=== PATIENT | male | born 2000 | race Caucasian/White ===

== ENCOUNTER 2022-04-06 09:20 | Observation (INO) ==
[2022-04-06] MEDS ORDERED: cefTRIAXone SODIUM 2,000 MG/70 ML BAG IV STA (09:57)
[2022-04-06] MEDS ORDERED: SODIUM CHLORIDE 0.9% 1000ML 1,000 ML IV ONE (09:57)
[2022-04-06] MEDS ORDERED: dexAMETHasone**PF** 10 MG/ML VIAL IV ONE (09:57)
--- NOTE | 2022-04-06 10:07 | Emergency Department Note ---
History of Present Illness General Chief complaint: Throat Pain Stated complaint: THROAT PAIN Time Seen by Provider: 04/06/22 09:47 Source: patient Mode of arrival: ambulatory Limitations: no limitations History of Present Illness Maximum Pain Intensity: 7 This patient is a 21-year-old male who returns to the ER after having worsening of the sore throat he was seen 2 days ago had extensive work-up including a CT s oft tissues neck which was read as unremarkable. He was placed on antibiotics and steroids which she took although he did not take them this morning because he could not swallow he is gotten worse today he has had no shortness of breath he just severe pain and difficulty swallowing. He has a hard time talking secondary to the pain. Denies any trauma or injury. no chest pain or shortness of breath. Home Medications Medication Instructions Recorded Confirmed Type acetaminophen 500 mg tablet 1,000 mg PO DIRECTED PRN 04/04/22 04/04/22 History (Tylenol Extra Strength) PAIN/FEVER amoxicillin 875 mg-potassium 1 tab PO BID #20 tabs 04/04/22 Rx clavulanate 125 mg tablet ibuprofen 200 mg tablet 400 - 600 mg PO DIRECTED PRN 04/04/22 04/04/22 History PAIN/FEVER prednisone 50 mg tablet 50 mg PO DAILY 5 days #5 tabs 04/04/22 Rx prednisone 50 mg tablet 50 mg PO DAILY 5 days #5 tabs 04/04/22 Rx Allergies Allergy/AdvReac Type Severity Reaction Status Date / Time No Known Allergies AdvReac Unknown Verified 04/04/22 19:54 Past Med/Surg History Medical History No significant past medical history Surgical History No significant past surgical history Social History Smoking Status: Never smoker Tobacco Type: E-cigarettes / Vaping Preferred Language: Yoruba marital status: Single Current Living Situation: Family current occupational status: unemployed Feels Safe at Home: Yes Review of Systems A total of 10 systems reviewed and were otherwise negative Physical Exam Vital Signs Vital Signs - 24 hr 04/06/22 09:32 04/06/22 10:41 04/06/22 11:34 Temperature 37 C Temperature Source Temporal Artery Scan Pulse Rate 97 H Pulse Rate [Finger] 83 Respiratory Rate 16 20 Respiratory Depth Normal Blood Pressure 137/83 Blood Pressure [Left Arm] 133/72 Blood Pressure Mean 101 Blood Pressure Mean [Left Arm] 92 Blood Pressure Position Sitting Pulse Oximetry 97 96 Oxygen Delivery Method Room Air Room Air Room Air Sepsis Recent Fever Within 48 Hours No Sepsis New/Unexplained Change in Mental Status No Sepsis Action Taken by Nursing No Action Required 04/06/22 13:09 04/06/22 14:45 Temperature Temperature Source Pulse Rate Pulse Rate [Finger] 92 H 90 Respiratory Rate 18 14 Respiratory Depth Blood Pressure Blood Pressure [Left Arm] 146/78 H 133/84 Blood Pressure Mean Blood Pressure Mean [Left Arm] 100 100 Blood Pressure Position Pulse Oximetry 97 99 Oxygen Delivery Method Room Air Room Air Sepsis Recent Fever Within 48 Hours Sepsis New/Unexplained Change in Mental Status Sepsis Action Taken by Nursing General: Well developed well nourished young male who is having difficulty time talking secondary to pain but appear in no acute distress, breathing comfortably on room air. HEENT: Normal cephalic atraumatic. Pupils are equal round and reactive to light. Extraocular movements are intact. Oropharynx is pink with moist mucous membranes. No swelling of the mouth lips or tongue. He does have trismus. He has swelling in his posterior oropharynx primarily on the left concerning for peritonsillar abscess. The airway appears patent and the floor the mouth is soft without Ludewig's angina Neck: Supple with a midline trachea. No meningeal signs or stiffness, no JVD or bruits. No Stridor. Chest: Clear to auscultation bilaterally. No wheezes or rhonchi. No increased work of breathing. Heart: Regular rate and rhythm without murmurs or gallops. Abdomen: Soft nontender, nondistended without rebound guarding or rigidity. Extremities: No cyanosis clubbing or edema. No calf tenderness or assymetry Spine/Back. Non tender to palpation. No CVA tenderness Skin: Good turgor without rashes. Neurologic exam: Cranial nerves two through 12 are intact. Motor and sensation are intact and symmetrical throughout. Course Administered Medications Discontinued Medications Benzocaine/Butamben/Tetracaine HCl (Benzocaine/Tetracain/Butam 50 Appln/5 Gm Can) Confirm Administered Dose 50 appln EXT .STK-MED ONE Stop: 04/06/22 13:27 Last Admin: 04/06/22 14:28 Dose: 50 appln Documented By: JOVANNY Dexamethasone Sodium Phosphate (DexamethasonePf 10 Mg/Ml Vial) 10 mg IV NOW ONE Stop: 04/06/22 09:58 Last Admin: 04/06/22 10:31 Dose: 10 mg Documented By: TONIA Sodium Chloride (Nss 1000ml) 1,000 mls @ 999 mls/hr IV .Q1H1M ONE Stop: 04/06/22 10:57 Last Infusion: 04/06/22 11:45 Dose: 0 mls/hr Documented By: Admin: 04/06/22 10:31 Dose: 999 mls/hr Documented By: TONIA Ceftriaxone Sodium (Rocephin) 2,000 mg in 70 mls @ 140 mls/hr IV NOW STA Stop: 04/06/22 10:26 Last Infusion: 04/06/22 11:01 Dose: 0 mls/hr Documented By: Admin: 04/06/22 10:31 Dose: 140 mls/hr Documented By: TONIA Ioversol (Optiray 350 100ml) 87 ml IV ONCE ONE Stop: 04/06/22 12:20 Last Admin: 04/06/22 12:19 Dose: 87 ml Documented By: MARIE Ketorolac Tromethamine (Ketorolac Tromethamine 15 Mg/Ml Vial) 10 mg IV NOW ONE Stop: 04/06/22 10:47 Last Admin: 04/06/22 10:56 Dose: 10 mg Documented By: TONIA Lidocaine/Epinephrine (Lidocaine 1%/Epinephrine 1:100,000 50 Ml Vial) 1 ml INFIL NOW ONE Stop: 04/06/22 13:14 Last Admin: 04/06/22 14:27 Dose: 1 ml Documented By: JOVANNY Medical Decision Making Differential Diagnosis Peritonsillar abscess, pharyngitis, sepsis, dehydration, Eldon's angina Medical Records Attestation: I reviewed the patient's medical records. Home Medications Current Medication List: was personally reviewed by me Laboratory Data Attestation: I reviewed the patient's lab results. Result diagrams: 04/06/22 10:22 04/06/22 10:22 Lab Results 04/06/22 04/06/22 04/06/22 Range/Units 10: 10:22 11:30 WBC 16.13 H (4.8-10.8) K/ul RBC 5.18 (4.63-6.08) M/uL Hgb 14.8 (14.0-18.0) g/dl Hct 43.4 (40.1-51.0) % MCV 83.8 (80.0-100.0) fL MCH 28.6 (25.0-34.0) pg MCHC 34.1 (32.0-36.0) g/dL RDW Std Deviation 35.8 L (36.4-46.3) fL RDW Coeff of Brandi 11.8 (11.5-14.5) % Plt Count 412 H (130-400) K/uL MPV 9.1 L (9.4-12.4) fL Immature Gran % (Auto) 1.4 % Neut % (Auto) 74.2 % Lymph % (Auto) 14.9 % [place] % (Auto) 8.8 % Eos % (Auto) 0.4 % Baso % (Auto) 0.3 % Neut # (Auto) 11.98 H (1.4-6.5) K/uL Lymph # (Auto) 2.40 (1.2-3.4) K/uL [place] # (Auto) 1.42 H (0.24-0.82) K/uL Eos # (Auto) 0.06 (0-0.50) K/uL Baso # (Auto) 0.05 (0-0.2) K/uL Immature Gran # (Auto) 0.22 H (0.00-0.02) K/uL Sodium 140 (136-145) mmol/L Potassium 3.8 (3.5-5.1) mmol/L Chloride 104 (98-107) mmol/L Carbon Dioxide 27 (21-32) mmol/L Anion Gap 9 (3-11) BUN 12 (6-23) mg/dl Creatinine 0.75 (0.6-1.4) mg/dl Est Cr Clr Drug Dosing Not Reportable Est GFR ( Amer) > 150.0 ml/min Est GFR (Non-Af Amer) 130.2 ml/min BUN/Creatinine Ratio 16.0 (10-20) Glucose 87 (70-99(Fasting)) mg/dl Calcium 9.6 (8.5-10.1) mg/dl Total Bilirubin 0.3 (0.2-1.0) mg/dl AST 27 (13-39) U/L ALT 37 (7-52) U/L Alkaline Phosphatase 60 (34-104) U/L Total Protein 8.2 (6.0-8.3) gm/dl Albumin 4.3 (3.4-5.0) gm/dl Globulin 3.9 (2.5-4.0) gm/dl Albumin/Globulin Ratio 1.1 (0.9-2) Lipase 22 (11-82) U/L SARS-CoV-2, RNA, NAAT NEGATIVE (NEGATIVE) Imaging Data Radiologist's Impression: Soft Tissue Neck CT 04/06/22 10:01 CT OF THE NECK WITH IV CONTRAST CLINICAL HISTORY: Sore throat. Evaluate for abscess. COMPARISON STUDY: Neck CT April 04, 2022. TECHNIQUE: Following IV administration of 87 mL of Optiray, helical axial images of the neck were obtained. Sagittal and coronal reconstructions were viewed. Automated exposure control was utilized for the study. A dose lowering technique was utilized adhering to the principles of ALARA. CT DOSE: 623.21 mGy.cm FINDINGS: Visualized portions of the intracranial contents are unremarkable. Sinuses and mastoid air cells are clear. Major vasculature of the neck is bansal nt. Tonsillar enlargement and enhancement represents tonsillitis, greater on the left. There is moderate mass effect with narrowing of the hypopharynx. There has been interval development of a rim-enhancing 3 x 1.7 x 1.2 cm left peritonsillar fluid collection consistent with an abscess. There is moderate adjacent edema. This abscess is elongated. The epiglottis is normal. There is no soft tissue g as. Visualized lung apices are clear. Parotid and submandibular glands are normal. Asymmetrically enlarged left cervical lymph nodes are reactive. Index left level 2 node on image 176 of 409 measures 2 x 1.8 cm. There are secretions within the nasopharynx. The adenoids are enlarged. The uvula is thickened. IMPRESSION: 1. Interval development of a 3 x 1.7 x 1.2 cm left peritonsillar abscess. Adjacent parapharyngeal edema. 2. Acute tonsillitis, greater on the left. Mass effect with narrowing of the hypopharynx. 3. Reactive left cervical lymphadenopathy. ACT 112: Negative or not required by law. Electronically signed by: José Membreno M.D. 04/06/2022 12:42 PM ECG Data Attestation: I personally reviewed and interpreted this ECG as follows: Indication: + abdominal pain and + chest pain Rate (beats per minute): 70 Rhythm: + normal sinus ECG Intervals/blocks: + Normal QRS, + Normal QT and + Normal [place] ECG [place]: + Normal ECG ST segments: + Normal ST segments ECG Findings: no PACs or no PVCs Comparison ECG Date: no prior available MDM Narrative This patient comes in as described above. He has worsening sore throatand I am suspicious for peritonsillar abscess. IV access was established he was hydrated 1 L normal saline bolus he was given Rocephin 2 g IV and Decadron 10 mg IV he reports no allergies blood work was obtained I did talk to Dr. Membreno, radiologist, who looked at the old scan he said there was no definite abscess on the previous he recommends rescanning he said there was a little bit of a phlegmon which could have organized now. His white count was elevated. No sick electrolyte or metabolic abnormalities. He did have an episode where he started having abdominal pain and chest pain. He had no evidence to suggest allergic reaction he had no hives or increasing swelling he was given Toradol I checked an EKG was unremarkable. He felt much better he seems somewhat anxious at the time 2 as well. I did consult Dr. Reyes. Dr. Reyes did come in and attempted to drain the abscess. As it turns out there was no abscess cavity or pus it but it ended up being more of a phlegmon. He does recommend we admit the patient for IV antibiotics and fluids steroids. I have consulted with Dr. Nieto and she and the [facility] team will be admitting the patient Impression & Plan Abscess, peritonsillar, Acute infective tonsillitis, Acute sore throat, Lab test negative for COVID-19 virus Discharge Plan Visit Data Chief Complaint: Throat Pain Stated Complaint: THROAT PAIN ED Provider: Terry Resendez Discharge Problem: Abscess, peritonsillar, Acute infective tonsillitis, Acute sore throat, Lab test negative for COVID-19 virus Forms Stand Alone Forms: My [facility] Prescriptions Prescriptions: No Action acetaminophen [Tylenol Extra Strength] 500 mg Tablet 1,000 mg PO DIRECTED PRN (Reason: PAIN/FEVER) ibuprofen 200 mg Tablet 400 - 600 mg PO DIRECTED PRN (Reason: PAIN/FEVER) amoxicillin-pot clavulanate 875-125 mg tablet 1 tab PO BID Qty: 20 0RF prednisone 50 mg tablet 50 mg PO DAILY 5 Days Qty: 5 0RF prednisone 50 mg tablet 50 mg PO DAILY 5 Days Qty: 5 0RF Referrals Referrals: PCP,NO [Primary Care Provider] - : Acute infective tonsillitis Qualifiers: Pharyngitis/tonsillitis etiology: unspecified etiology Qualified Code(s): J03.90 - Acute tonsillitis, unspecified
[2022-04-06 10:32] LABS: Basophils # (auto) 0.05 K/uL (0-0.2); Basophils % (auto) 0.3 %; Eosinophils # (auto) 0.06 K/uL (0-0.50); Eosinophils % (auto) 0.4 %; Hematocrit (blood only) 43.4 % (40.1-51.0); Hemoglobin 14.8 g/dl (14.0-18.0); Immature Granulocytes # (auto) 0.22 K/uL (0.00-0.02); Immature Granulocytes % (auto) 1.4 %; Lymphocytes % (auto) 14.9 %; Mean Corpuscular Hemoglobin 28.6 pg (25.0-34.0); Mean Corpuscular Hgb Conc 34.1 g/dL (32.0-36.0); Mean Corpuscular Volume 83.8 fL (80.0-100.0); Mean Platelet Volume 9.1 fL (9.4-12.4); Monocytes # (auto) 1.42 K/uL (0.24-0.82); Monocytes % (auto) 8.8 %; Neutrophils # (auto) 11.98 K/uL (1.4-6.5); Neutrophils % (auto) 74.2 %; Platelet Count 412 K/uL (130-400); RDW Coefficient of Variation 11.8 % (11.5-14.5); RDW Standard Deviation 35.8 fL (36.4-46.3); Red Blood Count 5.18 M/uL (4.63-6.08); White Blood Count 16.13 K/ul (4.8-10.8)
[2022-04-06] MEDS ORDERED: KETOROLAC TROMETHAMINE 15 MG/ML VIAL IV ONE (10:46)
[2022-04-06 10:52] LABS: Alanine Aminotransferase 37 U/L (7-52); Albumin Globulin Ratio 1.1 (0.9-2); Albumin Level 4.3 gm/dl (3.4-5.0); Alkaline Phosphatase 60 U/L (34-104); Anion Gap 9 (3-11); Aspartate Aminotransferase 27 U/L (13-39); Bilirubin,Total 0.3 mg/dl (0.2-1.0); Blood Urea Nitrogen 12 mg/dl (6-23); Calcium 9.6 mg/dl (8.5-10.1); Carbon Dioxide 27 mmol/L (21-32); Chloride 104 mmol/L (98-107); Est GFR (African American) > 150.0 ml/min; Est GFR (Non-African American) 130.2 ml/min; Globulin 3.9 gm/dl (2.5-4.0); Glucose 87 mg/dl (70-99(Fasting)); Lipase 22 U/L (11-82); Potassium 3.8 mmol/L (3.5-5.1); Sodium 140 mmol/L (136-145); Total Protein 8.2 gm/dl (6.0-8.3)
[2022-04-06] MEDS ORDERED: OPTIRAY 350 100ml IV ONE (12:19)
--- NOTE | 2022-04-06 12:45 | CT Scan Report ---
CT OF THE NECK WITH IV CONTRAST CLINICAL HISTORY: Sore throat. Evaluate for abscess. COMPARISON STUDY: Neck CT April 04, 2022. TECHNIQUE: Following IV administration of 87 mL of Optiray, helical axial images of the neck were ob tained. Sagittal and coronal reconstructions were viewed. Automated exposure control was utilized f or the study. A dose lowering technique was utilized adhering to the principles of ALARA. CT DOSE: 623.21 mGy.cm FINDINGS: Visualized portions of the intracranial contents are unremarkable. Sinuses and mastoid air cells are clear. Major vasculature of the neck is patent. Tonsillar enlargement and enhancement repr esents tonsillitis, greater on the left. There is moderate mass effect with narrowing of the hypophar ynx. There has been interval development of a rim-enhancing 3 x 1.7 x 1.2 cm left peritonsillar fluid collection consistent with an abscess. There is moderate adjacent edema. This abscess is elongated. The epiglottis is normal. There is no soft tissue gas. Visualized lung apices are clear. Parotid and submandibular glands are normal. Asymmetrically enlarged left cervical lymph nodes are reactive. Inde x left level 2 node on image 176 of 409 measures 2 x 1.8 cm. There are secretions within the nasophar ynx. The adenoids are enlarged. The uvula is thickened. IMPRESSION: 1. Interval development of a 3 x 1.7 x 1.2 cm left peritonsillar abscess. Adjacent parapharyngeal win ma. 2. Acute tonsillitis, greater on the left. Mass effect with narrowing of the hypopharynx. 3. Reactive left cervical lymphadenopathy. ACT 112: Negative or not required by law. Electronically signed by: José Membreno M.D. 04/06/2022 12:42 PM
[2022-04-06] MEDS ORDERED: LIDOCAINE 1%/EPINEPHRINE 1:100,000 50 ML VIAL INFIL ONE (13:13)
[2022-04-06] MEDS ORDERED: BENZOCAINE/TETRACAIN/BUTAM 50 APPLN/5 GM CAN EXT STA (13:14)
[2022-04-06] MEDS ORDERED: BENZOCAINE/TETRACAIN/BUTAM 50 APPLN/5 GM CAN EXT ONE (13:26)
--- NOTE | 2022-04-06 14:55 | Electrocardiogram Report ---
Test Reason : Blood Pressure : / mmHG Vent. Rate : 070 BPM Atrial Rate : 070 BPM P-R Int : 128 ms QRS Dur : 100 ms QT Int : 402 ms P-R-T Axes : 061 025 029 degrees QTc Int : 434 ms Poor data quality, interpretation may be adversely affected Normal sinus rhythm Normal ECG No previous ECGs available Confirmed by Saw Hoff ([id number]) on 04/06/2022 2:55:06 PM Referred By: REFERRED SELF Confirmed By:Saw Hoff
--- NOTE | 2022-04-06 14:59 | ENT Consultation ---
Date of Consultation April 06, 2022 Assessment & Plan (1) Acute infective tonsillitis: Tonsillar hypertrophy left greater than the right with minimal shift, minimal trismus. However radiologist read 3 cm left peritonsillar abscess. The patient does not look toxic and with a slight asymmetry, I did anesthetize and aspirated multiple sites with no sign of pus. I did incised with 11 blade and spread with tonsillar hemostat again no sign of abscess. This is peritonsillar cellulitis. Require in-house IV antibiotics. 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 Resendez Allergies Allergy/AdvReac Type Severity Reaction Status Date / Time No Known Allergies AdvReac Unknown Verified 04/04/22 19:54 Home Medications Medication Instructions Recorded Confirmed Type acetaminophen 500 mg tablet 1,000 mg PO DIRECTED PRN 04/04/22 04/04/22 History (Tylenol Extra Strength) PAIN/FEVER amoxicillin 875 mg-potassium 1 tab PO BID #20 tabs 04/04/22 Rx clavulanate 125 mg tablet ibuprofen 200 mg tablet 400 - 600 mg PO DIRECTED PRN 04/04/22 04/04/22 History PAIN/FEVER prednisone 50 mg tablet 50 mg PO DAILY 5 days #5 tabs 04/04/22 Rx prednisone 50 mg tablet 50 mg PO DAILY 5 days #5 tabs 04/04/22 Rx Patient History Medical History No significant past medical history Surgical History No significant past surgical history Social History Smoking Status: Never smoker Tobacco Type: E-cigarettes / Vaping Preferred Language: Scottish marital status: Single Current Living Situation: Family current occupational status: unemployed Feels Safe at Home: Yes Physical Exam Constitutional: + ill appearing and + obese Eyes: PERRL, conjunctivae normal, anicteric sclerae ENMT: external ear and nose normal, oropharynx normal Mouth: + oropharynx abnormality (Tonsils 3+, slight asymmetry with left side larger than the right) and + trismus (Minimal trismus) Neck: trachea midline, no thyromegaly Respiratory: normal respiratory effort, lungs clear to auscultation Results & Data ([facility]) Vital Signs (Past 12 Hours) Vital Signs Temp Pulse Pulse Resp BP BP Pulse Ox 04/06/22 14:45 90 14 133/84 99 04/06/22 13:09 92 H 18 146/78 H 97 04/06/22 11:34 83 20 133/72 96 04/06/22 10:41 04/06/22 09:32 37 C 97 H 16 137/83 97 O2 Del Method 04/06/22 14:45 Room Air 04/06/22 13:09 Room Air 04/06/22 11:34 Room Air 04/06/22 10:41 Room Air 04/06/22 09:32 Room Air
--- NOTE | 2022-04-06 15:03 | Operative Report ---
PG Post Operative Report Pre & Post Diagnosis Preop diagnosis: Peritonsillar abscess left Postop diagnosis: Left-sided phlegmon with no sign of pus I identified the patient and participated in the time-out.: Yes Procedure Incision and drainage Surgeon Destinee Reyes MD [place] None Estimated Blood Loss 2 Findings Consistent with Post-Op Diagnosis No sign of pus or abscess Specimens None Anesthesia Type Local Complications None Indications This 21-year-old was seen here last week and again 2 days ago and again today with worsening sore throat, CT scan 2 days ago compared to today showed progression of left-sided phlegmon to a 3 cm abscess according to radiology Description of Procedure I anesthetized using topical Cetacaine spray. This was followed by injection of 1% Xylocaine with 1 20,000 strength epinephrine. I aspirated multiple sites superior middle and inferior pole of the left tonsil in the peritonsillar space with 18-gauge needle. No sign of pus found. I did incised with #11 blade just to make sure. I spread the peritonsillar space open with a tonsil hemostat, still no sign of pus. He tolerated procedure well. I attest to the content of the Intraoperative Record and any orders documented therein. Any exceptions are noted below.
--- NOTE | 2022-04-06 16:13 | History & Physical Report ---
Date of Service April 06, 2022 Assessment & Plan (1) Acute sore throat: (2) Acute infective tonsillitis: Plan: - presented in the ER on March 29 with sore throat - He was tested for RSV, COVID, influenza, strep A which were all negative - was discharged home and presented back to ED on April 04 as his symptoms were worsening. He was treated with Tylenol and steroid, CT neck was obtained at that time and was overall unremarkable. - 04/06 - Today presents back in the ED as his sore throat is worsening, he has notable swelling, and difficulty eating/swallowing - CT of the neck was obtained, and showed possible peritonsillar abscess - ENT, Dr. Reyes was consulted by ED, and performed incision and drainage, however there was no abscess/pus identified. After close examination by ENT, patient's symptoms seem to be secondary to phlegmon, tonsillitis/peritonsillar cellulitis. - Discussed with Dr. Reyes who recommends patient to be admitted to hospital for IV antibiotics and rehydration, pain control. - In the ED received dexamethasone, ceftriaxone, pain control - Start IV unasyn , IVF NSS, IV tylenol, pain control - cont. to closely monitor - ENT, Dr. Reyes following History of Present Illness Chief Complaint: sore throat Primary Care Provider: NO PCP Patient is a 21-year-old male, with no significant past medical history, who presents with sore throat and neck swelling. Patient denies being on any medications or have any chronic medical conditions, however he does not follow with PCP. He presented in the ER on March 29 with sore throat. At that time he reported that his mother also had a sore throat. He was tested for RSV, COVID, influenza, strep A which were all negative. He was discharged home and presented back to ED on April 04 as his symptoms were worsening. He was treated with Tylenol and steroid, CT neck was obtained at that time and was overall unremarkable. Today presents back in the ED as his sore throat is worsening, he has notable swelling, and difficulty eating/swallowing. CT of the neck was obtained, and showed possible peritonsillar abscess. ENT, Dr. Reyes was consulted by ED, and performed incision and drainage, however there was no abscess/pus identified. After close examination by ENT, patient's symptoms seem to be secondary to phlegmon, tonsillitis/peritonsillar cellulitis. Discussed with Dr. Reyes who recommends patient to be admitted to hospital for IV antibiotics and rehydration, pain control. Patient is currently sitting up in bed, in no acute distress. He has difficulty speaking. He is breathing comfortably on room air. He is not drooling and he is able to control his secretions. Reports having fevers previously, but not recently. Currently denies any shortness of breath or chest pain. Currently denies any abdominal pain, has no history of nausea vomiting diarrhea. Reports his mother is at home, with a sore throat as well, and plans to be evaluated after the holidays. He is not aware of any medication allergies. He does not smoke, however he reports vaping. Denies any alcohol use. Reports that his mother has a murmur, however denies any significant family medical history. Allergies Allergy/AdvReac Type Severity Reaction Status Date / Time No Known Allergies AdvReac Unknown Verified 04/06/22 16:34 Home Medications Medication Instructions Recorded Confirmed Type acetaminophen 500 mg tablet 1,000 mg PO DIRECTED PRN 04/04/22 04/06/22 History (Tylenol Extra Strength) PAIN/FEVER amoxicillin 875 mg-potassium 1 tab PO BID #20 tabs 04/04/22 04/06/22 Rx clavulanate 125 mg tablet ibuprofen 200 mg tablet 400 - 600 mg PO DIRECTED PRN 04/04/22 04/06/22 History PAIN/FEVER prednisone 50 mg tablet 50 mg PO DAILY 5 days #5 tabs 04/04/22 04/06/22 Rx lactobacillus combination no.4 3 0 mmu cells PO DAILY 04/06/22 04/06/22 History billion cell capsule (Probiotic) Past Med/Surg History Medical History No significant past medical history Surgical History No significant past surgical history Family History (Updated 04/06/22 @ 16:11 by Marcelino Nieto MD) Mother Heart murmur Social History Smoking Status: Never smoker Tobacco Type: E-cigarettes / Vaping Preferred Language: Wolof marital status: Single Current Living Situation: Family current occupational status: unemployed Feels Safe at Home: Yes Review of Systems Review of Systems: All systems reviewed & are unremarkable except as noted in Subjective Physical Exam Constitutional: WD/WN, vitals as above (obese M in NAD, breathing comfortably on RA, no drooling) Eyes: PERRL, conjunctivae normal, anicteric sclerae ENMT: Throat: + tonsil abnormality (enlarged, scant blood present (s/p ENT procedure)) Neck: + thick neck (swelling noted more on the left) Respiratory: normal respiratory effort, lungs clear to auscultation Cardiovascular: RRR, no murmur, no edema Chest (Breasts): Chest: normal inspection of chest Gastrointestinal (Abdomen): normal bowel sounds, soft, nontender, no hepatosplenomegaly Musculoskeletal: no cyanosis or clubbing, extremities motor strength 5/5 Skin: no rashes, warm and dry Neurologic: patellar DTR's 2+ bilat, sensation intact Psychiatric: A+Ox3, euthymic affect Results & Data Results & Data ([facility]) Vital Signs (Past 12 Hours) Vital Signs Temp Pulse Pulse Resp BP BP Pulse Ox 04/06/22 14:45 90 14 133/84 99 04/06/22 13:09 92 H 18 146/78 H 97 04/06/22 11:34 83 20 133/72 96 04/06/22 10:41 04/06/22 09:32 37 C 97 H 16 137/83 97 O2 Del Method 04/06/22 14:45 Room Air 04/06/22 13:09 Room Air 04/06/22 11:34 Room Air 04/06/22 10:41 Room Air 04/06/22 09:32 Room Air Laboratory Results 04/06/22 04/06/22 04/06/22 Range/Units 11:30 10:22 10:22 WBC 16.13 H (4.8-10.8) K/ul RBC 5.18 (4.63-6.08) M/uL Hgb 14.8 (14.0-18.0) g/dl Hct 43.4 (40.1-51.0) % MCV 83.8 (80.0-100.0) fL MCH 28.6 (25.0-34.0) pg MCHC 34.1 (32.0-36.0) g/dL RDW Std Deviation 35.8 L (36.4-46.3) fL RDW Coeff of Brandi 11.8 (11.5-14.5) % Plt Count 412 H (130-400) K/uL MPV 9.1 L (9.4-12.4) fL Immature Gran % (Auto) 1.4 % Neut % (Auto) 74.2 % Lymph % (Auto) 14.9 % Lipscomb % (Auto) 8.8 % Eos % (Auto) 0.4 % Baso % (Auto) 0.3 % Neut # (Auto) 11.98 H (1.4-6.5) K/uL Lymph # (Auto) 2.40 (1.2-3.4) K/uL Lipscomb # (Auto) 1.42 H (0.24-0.82) K/uL Eos # (Auto) 0.06 (0-0.50) K/uL Baso # (Auto) 0.05 (0-0.2) K/uL Immature Gran # (Auto) 0.22 H (0.00-0.02) K/uL Sodium 140 (136-145) mmol/L Potassium 3.8 (3.5-5.1) mmol/L Chloride 104 (98-107) mmol/L Carbon Dioxide 27 (21-32) mmol/L Anion Gap 9 (3-11) BUN 12 (6-23) mg/dl Creatinine 0.75 (0.6-1.4) mg/dl Est Cr Clr Drug Dosing Not Reportable Est GFR ( Amer) > 150.0 ml/min Est GFR (Non-Af Amer) 130.2 ml/min BUN/Creatinine Ratio 16.0 (10-20) Glucose 87 (70-99(Fasting)) mg/dl Calcium 9.6 (8.5-10.1) mg/dl Total Bilirubin 0.3 (0.2-1.0) mg/dl AST 27 (13-39) U/L ALT 37 (7-52) U/L Alkaline Phosphatase 60 (34-104) U/L Total Protein 8.2 (6.0-8.3) gm/dl Albumin 4.3 (3.4-5.0) gm/dl Globulin 3.9 (2.5-4.0) gm/dl Albumin/Globulin Ratio 1.1 (0.9-2) Lipase 22 (11-82) U/L SARS-CoV-2, RNA, NAAT NEGATIVE (NEGATIVE) Diagnostic Findings CT neck IMPRESSION: 1. Interval development of a 3 x 1.7 x 1.2 cm left peritonsillar abscess. Adjacent parapharyngeal edema. 2. Acute tonsillitis, greater on the left. Mass effect with narrowing of the hypopharynx. 3. Reactive left cervical lymphadenopathy. Code Status & VTE Plan VTE Prophylaxis Plan VTE Prophylaxis will be ordered: Yes (1) Acute infective tonsillitis Pharyngitis/tonsillitis etiology: unspecified etiology Qualified Code(s): J 03.90 - Acute tonsillitis, unspecified
[2022-04-06] MEDS: ACETAMINOPHEN 1,000 MG/100 ML VIAL IV SCH (16:41)
[2022-04-06] MEDS: SODIUM CHLORIDE 0.9% 1000ML 1,000 ML IV SCH (16:41)
[2022-04-06] MEDS: AMPICILLIN/SULBACTAM SOD 3,000 MG in 0.9 % SODIUM CHLORIDE 100 ML IV SCH ×2 (17:15→23:13)
[2022-04-07] MEDS: ACETAMINOPHEN 1,000 MG/100 ML VIAL IV SCH ×3 (00:19→16:05)
[2022-04-07] MEDS: AMPICILLIN/SULBACTAM SOD 3,000 MG in 0.9 % SODIUM CHLORIDE 100 ML IV SCH ×4 (04:32→22:41)
[2022-04-07 06:29] LABS: Hemoglobin 13.6 g/dl (14.0-18.0); Mean Corpuscular Hgb Conc 34.9 g/dL (32.0-36.0); Mean Corpuscular Volume 83.2 fL (80.0-100.0); Mean Platelet Volume 9.1 fL (9.4-12.4); Platelet Count 384 K/uL (130-400); RDW Coefficient of Variation 11.9 % (11.5-14.5); RDW Standard Deviation 35.7 fL (36.4-46.3); Red Blood Count 4.69 M/uL (4.63-6.08); White Blood Count 15.69 K/ul (4.8-10.8)
[2022-04-07] MEDS: SODIUM CHLORIDE 0.9% 1000ML 1,000 ML IV SCH (06:35)
[2022-04-07 07:00] LABS: Anion Gap 6 (3-11); BUN Creatinine Ratio 17.7 (10-20); Blood Urea Nitrogen 11 mg/dl (6-23); Carbon Dioxide 29 mmol/L (21-32); Chloride 103 mmol/L (98-107); Creatinine Clr Calc Pharmacy 212.4 ml/min; Est GFR (African American) > 150.0 ml/min; Est GFR (Non-African American) 140.8 ml/min; Glucose 90 mg/dl (70-99(Fasting)); Magnesium 2.3 mg/dl (1.7-2.4); Phosphorus 4.3 mg/dl (2.5-4.9); Sodium 138 mmol/L (136-145)
--- NOTE | 2022-04-07 07:41 | Hospitalist Progress Note ---
Date of Service April 07, 2022 Assessment & Plan (1) Acute sore throat: (2) Acute infective tonsillitis: Plan: - presented in the ER on March 29 with sore throat - He was tested for RSV, COVID, influenza, strep A which were all negative - was discharged home and presented back to ED on April 04 as his symptoms were worsening. He was treated with Tylenol and steroid, CT neck was obtained at that time and was overall unremarkable. - 04/06 - Today presents back in the ED as his sore throat is worsening, he has notable swelling, and difficulty eating/swallowing - CT of the neck was obtained, and showed possible peritonsillar abscess - ENT, Dr. Reyes was consulted by ED, and performed incision and drainage, however there was no abscess/pus identified. After close examination by ENT, patient's symptoms seem to be secondary to phlegmon, tonsillitis/peritonsillar cellulitis. - Discussed with Dr. Reyes who recommends patient to be admitted to hospital for IV antibiotics and rehydration, pain control. - In the ED received dexamethasone, ceftriaxone, pain control - Started IV unasyn , IVF NSS, IV tylenol, pain control - will continue - cont. to closely monitor - ENT, Dr. Reyes following - per ENT eval. pt improved on 04/07 Patient does feel better, pain better controlled and he is able to speak better. We will advance diet to clear liquid as well Admission and Anticipated Discharge Date Admission Date: April 06, 2022 Subjective Patient seen in follow-up of sore throat, tonsillitis seen by ENT Patient feeling better this morning Will advance diet to clear liquid Seen by ENT this a.m. Continue IV antibiotic No fevers chills chest pain shortness of breath, no nausea vomiting abdominal pain Review of Systems Review of Systems: All systems reviewed & are unremarkable except as noted in Subjective Physical Exam Physical Exam: Constitutional:J WD/WN, vitals as a maría (obese M in N AD, breathing comf ortably on RA, no drooling) Eyes: PERRL, EOMI, conju nctivae normal, an icteric sclerae ENMT: Throat: + tonsil a bnormality (enlarg ed, scant blood pr esent (s/p ENT pro cedure)) Neck: + thick neck (swe lling noted more o n the left but imp roved from yesterd ay) Respiratory: normal respiratory effort, lungs alesha ar to auscultation Cardiovascular:J RRR, no murmur, no edema Chest (Breasts): Chest: normal insp ection of chest Gastrointestinal ( Abdomen): normal bowel sound s, soft, nontender Musculoskeletal: extremities motor strength 5/5 Skin: no rashes, warm an d dry Neurologic: moves extremities, speech improved Psychiatric: A+Ox3, euthymic af fect Results & Data Results & Data ([facility]) Vital Signs (Past 12 Hours) Vital Signs Temp Pulse Pulse Resp BP BP Pulse Ox 04/07/22 07:23 53 L 04/07/22 03:55 36.5 C 54 L 120/75 96 04/06/22 22:01 61 04/06/22 19:50 75 04/07/22 00:06 36.5 C 62 16 133/73 95 04/06/22 19:45 37.0 C 72 16 122/72 97 O2 Del Method 04/07/22 07:23 04/07/22 03:55 Room Air 04/06/22 22:01 04/06/22 19:50 04/07/22 00:06 Room Air 04/06/22 19:45 Room Air Laboratory Results 04/07/22 04/07/22 04/06/22 Range/Units 05:51 05:51 11:30 WBC 15.69 H (4.8-10.8) K/ul RBC 4.69 (4.63-6.08) M/uL Hgb 13.6 L (14.0-18.0) g/dl Hct 39.0 L (40.1-51.0) % MCV 83.2 (80.0-100.0) fL MCH 29.0 (25.0-34.0) pg MCHC 34.9 (32.0-36.0) g/dL RDW Std Deviation 35.7 L (36.4-46.3) fL RDW Coeff of Brandi 11.9 (11.5-14.5) % Plt Count 384 (130-400) K/uL MPV 9.1 L (9.4-12.4) fL Immature Gran % (Auto) % Neut % (Auto) % Lymph % (Auto) % Mathews % (Auto) % Eos % (Auto) % Baso % (Auto) % Neut # (Auto) (1.4-6.5) K/uL Lymph # (Auto) (1.2-3.4) K/uL Mathews # (Auto) (0.24-0.82) K/uL Eos # (Auto) (0-0.50) K/uL Baso # (Auto) (0-0.2) K/uL Immature Gran # (Auto) (0.00-0.02) K/uL Sodium 138 (136-145) mmol/L Potassium 4.0 (3.5-5.1) mmol/L Chloride 103 (98-107) mmol/L Carbon Dioxide 29 (21-32) mmol/L Anion Gap 6 (3-11) BUN 11 (6-23) mg/dl Creatinine 0.62 (0.6-1.4) mg/dl Est Cr Clr Drug Dosing 212.4 Est GFR ( Amer) > 150.0 ml/min Est GFR (Non-Af Amer) 140.8 ml/min BUN/Creatinine Ratio 17.7 (10-20) Glucose 90 (70-99(Fasting)) mg/dl Calcium 9.0 (8.5-10.1) mg/dl Phosphorus 4.3 (2.5-4.9) mg/dl Magnesium 2.3 (1.7-2.4) mg/dl Total Bilirubin (0.2-1.0) mg/dl AST (13-39) U/L ALT (7-52) U/L Alkaline Phosphatase (34-104) U/L Total Protein (6.0-8.3) gm/dl Albumin (3.4-5.0) gm/dl Globulin (2.5-4.0) gm/dl Albumin/Globulin Ratio (0.9-2) Lipase (11-82) U/L SARS-CoV-2, RNA, NAAT NEGATIVE (NEGATIVE) 04/06/22 04/06/22 Range/Units 10:22 10:22 WBC 16.13 H (4.8-10.8) K/ul RBC 5.18 (4.63-6.08) M/uL Hgb 14.8 (14.0-18.0) g/dl Hct 43.4 (40.1-51.0) % MCV 83.8 (80.0-100.0) fL MCH 28.6 (25.0-34.0) pg MCHC 34.1 (32.0-36.0) g/dL RDW Std Deviation 35.8 L (36.4-46.3) fL RDW Coeff of Brandi 11.8 (11.5-14.5) % Plt Count 412 H (130-400) K/uL MPV 9.1 L (9.4-12.4) fL Immature Gran % (Auto) 1.4 % Neut % (Auto) 74.2 % Lymph % (Auto) 14.9 % Mathews % (Auto) 8.8 % Eos % (Auto) 0.4 % Baso % (Auto) 0.3 % Neut # (Auto) 11.98 H (1.4-6.5) K/uL Lymph # (Auto) 2.40 (1.2-3.4) K/uL Mathews # (Auto) 1.42 H (0.24-0.82) K/uL Eos # (Auto) 0.06 (0-0.50) K/uL Baso # (Auto) 0.05 (0-0.2) K/uL Immature Gran # (Auto) 0.22 H (0.00-0.02) K/uL Sodium 140 (136-145) mmol/L Potassium 3.8 (3.5-5.1) mmol/L Chloride 104 (98-107) mmol/L Carbon Dioxide 27 (21-32) mmol/L Anion Gap 9 (3-11) BUN 12 (6-23) mg/dl Creatinine 0.75 (0.6-1.4) mg/dl Est Cr Clr Drug Dosing Not Reportable Est GFR ( Amer) > 150.0 ml/min Est GFR (Non-Af Amer) 130.2 ml/min BUN/Creatinine Ratio 16.0 (10-20) Glucose 87 (70-99(Fasting)) mg/dl Calcium 9.6 (8.5-10.1) mg/dl Phosphorus (2.5-4.9) mg/dl Magnesium (1.7-2.4) mg/dl Total Bilirubin 0.3 (0.2-1.0) mg/dl AST 27 (13-39) U/L ALT 37 (7-52) U/L Alkaline Phosphatase 60 (34-104) U/L Total Protein 8.2 (6.0-8.3) gm/dl Albumin 4.3 (3.4-5.0) gm/dl Globulin 3.9 (2.5-4.0) gm/dl Albumin/Globulin Ratio 1.1 (0.9-2) Lipase 22 (11-82) U/L SARS-CoV-2, RNA, NAAT (NEGATIVE) Medications Administered Current Inpatient Medications Acetaminophen (Ofirmev) 1,000 mg in 100 mls @ 400 mls/hr IV Q8H [facility] Stop: 04/09/22 15:59 Last Admin: 04/07/22 00:19 Dose: Not Given Ampicillin Sodium/Sulbactam Sodium 3,000 mg/ Sodium Chloride 108 mls @ 200 mls/hr IV Q6H [facility]; Protocol Stop: 04/16/22 16:59 Last Infusion: 04/07/22 05:05 Dose: Infused Sodium Chloride (Nss 1000ml) 1,000 mls @ 80 mls/hr IV .[id number] [facility] Stop: 05/06/22 16:14 Last Admin: 04/07/22 06:35 Dose: 80 mls/hr (1) Acute infective tonsillitis Pharyngitis/tonsillitis etiology: unspecified etiology Qualified Code(s): J03.90 - Acute tonsillitis, unspecified
--- NOTE | 2022-04-07 08:41 | Ears,Nose,Throat Progress Note ---
Date of Service April 07, 2022 Assessment & Plan (1) Acute infective tonsillitis: (2) Abscess, peritonsillar: Plan: Improved today. Afebrile. Still has dysphagia and odynophagia. Left tonsil still swollen with erythema. No sign of pus. Discussed with Dr. Nieto. To advance diet. Continue IV antibiotics. Admission and Anticipated Discharge Date Admission Date: April 06, 2022 Subjective 21-year-old with 10 days of sore throat, admitted yesterday for left peritonsillar phlegmon, responding to IV antibiotics with less sore throat, still has pain and some dysphagia Physical Exam Constitutional: + obese Eyes: PERRL, conjunctivae normal, anicteric sclerae ENMT: external ear and nose normal, oropharynx normal Mouth: + oropharynx abnormality (Still has significant left peritonsillar erythema and swelling) Neck: trachea midline, no thyromegaly Results & Data ([facility]) Vital Signs (Past 12 Hours) Vital Signs Temp Pulse Pulse Resp BP Pulse Ox O2 Del Method 04/07/22 07:23 53 L 04/07/22 03:55 36.5 C 54 L 120/75 96 Room Air 04/06/22 22:01 61 04/07/22 00:06 36.5 C 62 16 133/73 95 Room Air (1) Acute infective tonsillitis Pharyngitis/tonsillitis etiology: unspecified etiology Qualified Code(s): J03.90 - Acute tonsillitis, unspecified
[2022-04-07] MEDS ORDERED: DEXAMETHASONE SOD INJ 4 MG/ML VIAL IV STA (22:08)
[2022-04-07] MEDS ORDERED: KETOROLAC TROMETHAMINE 15 MG/ML VIAL IV ONE (22:09)
[2022-04-07] MEDS: CLINDAMYCIN/D5W 600 MG/50 ML BAG IV SCH (23:33)
[2022-04-08] MEDS: ACETAMINOPHEN 1,000 MG/100 ML VIAL IV SCH ×3 (00:16→16:03)
[2022-04-08] MEDS: AMPICILLIN/SULBACTAM SOD 3,000 MG in 0.9 % SODIUM CHLORIDE 100 ML IV SCH ×2 (04:50→11:19)
[2022-04-08] MEDS: CLINDAMYCIN/D5W 600 MG/50 ML BAG IV SCH ×2 (05:48→14:37)
[2022-04-08 06:03] LABS: Hematocrit (blood only) 42.7 % (40.1-51.0); Hemoglobin 14.7 g/dl (14.0-18.0); Mean Corpuscular Hemoglobin 28.5 pg (25.0-34.0); Mean Corpuscular Hgb Conc 34.4 g/dL (32.0-36.0); Mean Corpuscular Volume 82.8 fL (80.0-100.0); Mean Platelet Volume 9.1 fL (9.4-12.4); Platelet Count 373 K/uL (130-400); RDW Coefficient of Variation 11.7 % (11.5-14.5); RDW Standard Deviation 35.3 fL (36.4-46.3); Red Blood Count 5.16 M/uL (4.63-6.08); White Blood Count 14.29 K/ul (4.8-10.8)
[2022-04-08 06:21] LABS: Anion Gap 8 (3-11); BUN Creatinine Ratio 21.2 (10-20); Blood Urea Nitrogen 14 mg/dl (6-23); Calcium 9.1 mg/dl (8.5-10.1); Carbon Dioxide 26 mmol/L (21-32); Chloride 104 mmol/L (98-107); Creatinine Clr Calc Pharmacy 199.9 ml/min; Est GFR (African American) > 150.0 ml/min; Est GFR (Non-African American) 137.2 ml/min; Glucose 128 mg/dl (70-99(Fasting)); Magnesium 2.3 mg/dl (1.7-2.4); Phosphorus 4.1 mg/dl (2.5-4.9); Potassium 4.4 mmol/L (3.5-5.1); Sodium 138 mmol/L (136-145)
--- NOTE | 2022-04-08 07:11 | Ears,Nose,Throat Progress Note ---
Date of Service April 08, 2022 Assessment & Plan (1) Abscess, peritonsillar: Plan: Improved. Continue p.o. antibiotics and steroid as prescribed previously. Admission and Anticipated Discharge Date Admission Date: April 06, 2022 Subjective He feels improved this morning. Sore throat on the left side at the incision site otherwise tolerating diet. Physical Exam Constitutional: WD/WN, vitals as above Eyes: PERRL, conjunctivae normal, anicteric sclerae ENMT: external ear and nose normal, oropharynx normal Mouth: + oropharynx abnormality (Mild erythema, less swollen, I&D site healing) Neck: Left swollen, palpable 3 cm left BRAYDEN node, minimally tender Results & Data ([facility]) Vital Signs (Past 12 Hours) Vital Signs Temp Pulse Pulse Resp BP BP Pulse Ox 04/08/22 03:44 36.4 C L 80 18 104/53 L 97 04/08/22 00:00 72 04/07/22 22:53 36.5 C 87 18 114/72 95 04/07/22 19:50 04/07/22 19:11 36.9 C 72 18 135/80 96 O2 Del Method O2 Del Method 04/08/22 03:44 Room Air 04/08/22 00:00 04/07/22 22:53 Room Air 04/07/22 19:50 Room Air 04/07/22 19:11 Room Air
[2022-04-08] MEDS ORDERED: SODIUM CHLORIDE 0.9% 500 ML IV SCH (08:00)
--- NOTE | 2022-04-08 09:05 | Hospitalist Progress Note ---
Date of Service April 08, 2022 Assessment & Plan (1) Acute sore throat: (2) Acute infective tonsillitis: Plan: - presented in the ER on March 29 with sore throat - He was tested for RSV, COVID, influenza, strep A which were all negative - was discharged home and presented back to ED on April 04 as his symptoms were worsening. He was treated with Tylenol and steroid, CT neck was obtained at that time and was overall unremarkable. - 04/06 - Today presents back in the ED as his sore throat is worsening, he has notable swelling, and difficulty eating/swallowing - CT of the neck was obtained, and showed possible peritonsillar abscess - ENT, Dr. Reyes was consulted by ED, and performed incision and drainage, however there was no abscess/pus identified. After close examination by ENT, patient's symptoms seem to be secondary to phlegmon, tonsillitis/peritonsillar cellulitis. - Discussed with Dr. Reyes who recommends patient to be admitted to hospital for IV antibiotics and rehydration, pain control. - In the ED received dexamethasone, ceftriaxone, pain control - Started IV unasyn , IVF NSS, IV tylenol, pain control - will continue - cont. to closely monitor - ENT, Dr. Reyes following - per ENT eval. pt improved on 04/08 AM Patient does feel better, pain better controlled and he is able to speak better. Tolerating clear liquid diet. Possibly DC later this PM Admission and Anticipated Discharge Date Admission Date: April 06, 2022 Subjective Patient seen in follow-up of sore throat, tonsillitis seen by ENT Overnight patient had more neck pain, and [employer] was contacted. IV clindamycin was added and patient received dose of dexamethasone This morning patient feels better again. Seen by ENT this a.m. Tolerating clear liquid diet Continue IV antibiotic while inpt, likely DC later today No fevers chills chest pain shortness of breath, no nausea vomiting abdominal pain Review of Systems Review of Systems: All systems reviewed & are unremarkable except as noted in Subjective Physical Exam Physical Exam: Constitutional:J WD/WN, vitals as a maría (obese M in N AD, breathing comf ortably on RA, no drooling) Eyes: PERRL, EOMI, conju nctivae normal, an icteric sclerae ENMT: Throat: + tonsil a bnormality (enlarg ed, scant blood pr esent (s/p ENT pro cedure)) Neck: + thick neck (swe lling noted more o n the left but imp roved from yesterd ay) Respiratory: normal respiratory effort, lungs alesha ar to auscultation Cardiovascular:J RRR, no murmur, no edema Chest (Breasts): Chest: normal insp ection of chest Gastrointestinal ( Abdomen): normal bowel sound s, soft, nontender Musculoskeletal: extremities motor strength 5/5 Skin: no rashes, warm an d dry Neurologic: moves extremities, speech improved Psychiatric: A+Ox3, euthymic af fect Results & Data Results & Data ([facility]) Vital Signs (Past 12 Hours) Vital Signs Temp Pulse Pulse Resp BP BP Pulse Ox 04/08/22 08:08 36.4 C L 73 15 108/72 93 04/08/22 03:44 36.4 C L 80 18 104/53 L 97 04/08/22 00:00 72 04/07/22 22:53 36.5 C 87 18 114/72 95 O2 Del Method 04/08/22 08:08 Room Air 04/08/22 03:44 Room Air 04/08/22 00:00 04/07/22 22:53 Room Air Laboratory Results 04/08/22 04/08/22 Range/Units 05:30 05:30 WBC 14.29 H (4.8-10.8) K/ul RBC 5.16 (4.63-6.08) M/uL Hgb 14.7 (14.0-18.0) g/dl Hct 42.7 (40.1-51.0) % MCV 82.8 (80.0-100.0) fL MCH 28.5 (25.0-34.0) pg MCHC 34.4 (32.0-36.0) g/dL RDW Std Deviation 35.3 L (36.4-46.3) fL RDW Coeff of Brandi 11.7 (11.5-14.5) % Plt Count 373 (130-400) K/uL MPV 9.1 L (9.4-12.4) fL Sodium 138 (136-145) mmol/L Potassium 4.4 (3.5-5.1) mmol/L Chloride 104 (98-107) mmol/L Carbon Dioxide 26 (21-32) mmol/L Anion Gap 8 (3-11) BUN 14 (6-23) mg/dl Creatinine 0.66 (0.6-1.4) mg/dl Est Cr Clr Drug Dosing 199.9 ml/min Est GFR ( Amer) > 150.0 ml/min Est GFR (Non-Af Amer) 137.2 ml/min BUN/Creatinine Ratio 21.2 H (10-20) Glucose 128 H (70-99(Fasting)) mg/dl Calcium 9.1 (8.5-10.1) mg/dl Phosphorus 4.1 (2.5-4.9) mg/dl Magnesium 2.3 (1.7-2.4) mg/dl Medications Administered Current Inpatient Medications Acetaminophen (Ofirmev) 1,000 mg in 100 mls @ 400 mls/hr IV Q8H [facility] Stop: 04/09/22 15:59 Last Admin: 04/08/22 08:34 Dose: Not Given Ampicillin Sodium/Sulbactam Sodium 3,000 mg/ Sodium Chloride 108 mls @ 200 mls/hr IV Q6H [facility]; Protocol Stop: 04/16/22 16:59 Last Infusion: 04/08/22 06:18 Dose: Infused Clindamycin Phosphate (Cleocin/D5w) 600 mg in 50 mls @ 100 mls/hr IV Q8H [facility] Stop: 04/17/22 22:29 Last Infusion: 04/08/22 06:30 Dose: Infused Sodium Chloride (Nss) 500 mls @ 80 mls/hr IV .[id number] [facility] Stop: 04/08/22 14:14 Last Admin: 04/08/22 08:36 Dose: 80 mls/hr (1) Acute infective tonsillitis Pharyngitis/tonsillitis etiology: unspecified etiology Qualified Code(s): J03.90 - Acute tonsillitis, unspecified
--- NOTE | 2022-04-08 16:43 | Discharge Summary ---
Date of Service April 08, 2022 Admission HPI Per Admitting Provider Patient is a 21-year-old male, with no significant past medical history, who presents with sore throat and neck swelling. Patient denies being on any medications or have any chronic medical conditions, however he does not follow with PCP. He presented in the ER on March 29 with sore throat. At that time he reported that his mother also had a sore throat. He was tested for RSV, COVID, influenza, strep A which were all negative. He was discharged home and presented back to ED on April 04 as his symptoms were worsening. He was treated with Tylenol and steroid, CT neck was obtained at that time and was overall unremarkable. Today presents back in the ED as his sore throat is worsening, he has notable swelling, and difficulty eating/swallowing. CT of the neck was obtained, and showed possible peritonsillar abscess. ENT, Dr. Reyes was consulted by ED, and performed incision and drainage, however there was no abscess/pus identified. After close examination by ENT, patient's symptoms seem to be secondary to phlegmon, tonsillitis/peritonsillar cellulitis. Discussed with Dr. Reyes who recommends patient to be admitted to hospital for IV antibiotics and rehydration, pain control. Patient is currently sitting up in bed, in no acute distress. He has difficulty speaking. He is breathing comfortably on room air. He is not drooling and he is able to control his secretions. Reports having fevers previously, but not recently. Currently denies any shortness of breath or chest pain. Currently denies any abdominal pain, has no history of nausea vomiting diarrhea. Reports his mother is at home, with a sore throat as well, and plans to be evaluated after the holidays. He is not aware of any medication allergies. He does not smoke, however he reports vaping. Denies any alcohol use. Reports that his mother has a murmur, however denies any significant family medical history. Admission Exam Per Admitting Provider Constitutional: WD/WN, vitals as above (obese M in NAD, breathing comfortably on RA, no drooling) Eyes: PERRL, conjunctivae normal, anicteric sclerae ENMT: Throat: + tonsil abnormality (enlarged, scant blood present (s/p ENT procedure)) Neck: + thick neck (swelling noted more on the left) Respiratory: normal respiratory effort, lungs clear to auscultation Cardiovascular: RRR, no murmur, no edema D Chest (Breasts): Chest: normal inspection of chest Gastrointestinal (Abdomen): normal bowel sounds, soft, nontender, no hepatosplenomegaly Musculoskeletal: no cyanosis or clubbing, extremities motor strength 5/5 Skin: no rashes, warm and dry Neurologic: patellar DTR's 2+ bilat, sensation intact Psychiatric: A+Ox3, euthymic affect Principal Diagnosis Tonsillitis, peritonsillar phlegmon Discharge Exam Constitutional: WD/WN, vitals as above (obese M in NAD, breathing comfortably on RA, no drooling) Eyes: PERRL, EOMI, conjunctivae normal, anicteric sclerae ENMT: Throat: + tonsil abnormality (enlarged, scant blood present (s/p ENT procedure)) Neck: + thick neck (swelling noted more on the left but improved from yesterday) Respiratory: normal respiratory effort, lungs clear to auscultation Cardiovascular: RRR, no murmur, no edema Chest (Breasts): Chest: normal inspection of chest Gastrointestinal (Abdomen): normal bowel sounds, soft, nontender Musculoskeletal: extremities motor strength 5/5 Skin: no rashes, warm and dry Neurologic: moves extremities, speech improved Psychiatric: A+Ox3, euthymic affect Discharge Data Allergies Allergy/AdvReac Type Severity Reaction Status Date / Time No Known Allergies AdvReac Unknown Verified 04/06/22 16:34 Consultations 04/06/22 15:14 ED Decision to Admit Stat 04/06/22 16:06 Consult Otolaryngology (Head and Neck) Routine Ordered Studies 04/06/22 10:01 CT soft tissue neck w con Stat FINDINGS: Visualized portions of the intracranial contents are unremarkable. Sinuses and mastoid air cells are clear. Major vasculature of the neck is patent. Tonsillar enlargement and enhancement represents tonsillitis, greater on the left. There is moderate mass effect with narrowing of the hypopharynx. There has been interval development of a rim-enhancing 3 x 1.7 x 1.2 cm left peritonsillar fluid collection consistent with an abscess. There is moderate adjacent edema. This abscess is elongated. The epiglottis is normal. There is no soft tissue gas. Visualized lung apices are clear. Parotid and submandibular glands are normal. Asymmetrically enlarged left cervical lymph nodes are reactive. Index left level 2 node on image 176 of 409 measures 2 x 1.8 cm. There are secretions within the nasopharynx. The adenoids are enlarged. The uvula is thickened. IMPRESSION: 1. Interval development of a 3 x 1.7 x 1.2 cm left peritonsillar abscess. Adjacent parapharyngeal edema. 2. Acute tonsillitis, greater on the left. Mass effect with narrowing of the hypopharynx. 3. Reactive left cervical lymphadenopathy. Hospital Course (1) Acute sore throat: (2) Acute infective tonsillitis: - presented in the ER on March 29 with sore throat - He was tested for RSV, COVID, influenza, strep A which were all negative - was discharged home and presented back to ED on April 04 as his symptoms were worsening. He was treated with Tylenol and steroid, CT neck was obtained at that time and was overall unremarkable. - 04/06 - Today presents back in the ED as his sore throat is worsening, he has notable swelling, and difficulty eating/swallowing - CT of the neck was obtained, and showed possible peritonsillar abscess - ENT, Dr. Reyes was consulted by ED, and performed incision and drainage, however there was no abscess/pus identified. After close examination by ENT, patient's symptoms seem to be secondary to phlegmon, tonsillitis/peritonsillar cellulitis. - Discussed with Dr. Reyes who recommends patient to be admitted to hospital for IV antibiotics and rehydration, pain control. - In the ED received dexamethasone, ceftriaxone, pain control - Started IV unasyn , IVF NSS, IV tylenol, pain control - will continue - cont. to closely monitor - ENT, Dr. Reyes following - per ENT eval. pt improved on 04/08 AM Patient does feel better, pain better controlled and he is able to speak better. Tolerating clear liquid diet. Plan to discharge on steroids and antibiotics. Follow-up with PCP, and ENT as needed. Total Time Total Time Spent Total Time Spent (In Minutes): 40 Discharge Plan Discharge Items Patient Disposition: Home - Self-Care Reason For Visit: TONSILITIS Discharge Diagnosis: Tonsillitis, peritonsillar phlegmon Activity: Per Instructions section Non-emergency contact: Primary Care Provider Call non-emergency contact if: you have any medication questions and your symptoms worsen Follow-up/Referrals: PCP,NO [Primary Care Provider] - Diet: Other - See Diet Comment Diet Texture: Pureed (blended smooth) Addtl Attending Provider Instructions: Follow-up with PCP within 1 to 2 weeks. Follow-up with ENT, Dr. Reyes as needed. Continue to take prednisone and Augmentin as was already prescribed. In addition take clindamycin for next several days as prescribed. Recommend liquid/soft, easy to swallow diet. Recommended taking probiotic for next 1 to 2 weeks. Pending Studies at Discharge: No Stand-Alone Forms: [facility], Smoking Cessation Medications and DC Order Prescriptions: New clindamycin HCl 150 mg capsule 150 mg PO Q8H 7 Days Qty: 21 0RF Continued acetaminophen [Tylenol Extra Strength] 500 mg Tablet 1,000 mg PO DIRECTED PRN (Reason: PAIN/FEVER) ibuprofen 200 mg Tablet 400 - 600 mg PO DIRECTED PRN (Reason: PAIN/FEVER) amoxicillin-pot clavulanate 875-125 mg tablet 1 tab PO BID Qty: 20 0RF prednisone 50 mg tablet 50 mg PO DAILY 5 Days Qty: 5 0RF Probiotic 3 billion cell Capsule 0 mmu cells PO DAILY Rx Instructions: administer with a meal Discharge Orders: Discharge Order (Routine); Ordered 04/08/22 Ordered By: Marcelino Frank/Other Patient Handouts: Tonsillitis in Adults Admission Data Admit Date/Time: 04/06/22 15:33 Attending Provider: Marcelino Nieto Admit Provider: Marcelino Nieto Primary Care Provider: PCP,NO Other Providers: Marcelino Nieto ; Destinee Reyes
== END 2022-04-08 17:30 | disposition home or self-care (01) ==
LOC: ED 09:20 → 2S 15:33 → INTOOBSV 15:33 → 2S 18:47
DX: J03.90 Acute tonsillitis, unspecified; J36 Peritonsillar abscess